=== PATIENT | female | born 1980 | race Caucasian/White ===

== ENCOUNTER 2017-04-13 22:13 | Emergency (ER) | payer BC ==
[~2017-04-13] VITALS: Ht 160 cm; Wt 85.2 kg
[~2017-04-13 22:13] MED LIST: EMPA1TAB PO; FURO-85 PO; LOSA50TA6 PO
[2017-04-13 22:21] VITALS: BP 148/88; PULSE 80; TEMP 36.6; O2SAT 100; Ht 160 cm; Wt 85.2 kg
[2017-04-13] MEDS ORDERED: SITA100T3 PO (22:39)
[2017-04-13] MEDS ORDERED: FRS/40 PO (22:39)
[2017-04-13] MEDS ORDERED: OXYCODONE IR HOME PACK PO ONE (22:45)
[2017-04-13] MEDS ORDERED: OXYC1TAB3 PO (23:14)
[2017-04-13] MEDS ORDERED: KETOROLAC TROMETHAMINE 60 MG/2 ML VIAL IM STA (23:33)
--- NOTE | 2017-04-14 06:28 | EMERGENCY ROOM VISIT NOTE ---
History First contact with patient: 22:33 Chief Complaint: DENTAL PAIN Stated Complaint: TOOTHACHE Nursing Triage Summary: Left sided dental pain since yesterday. Patient states that she has been taking OTC medications with no relief. History of Present Illness The patient is a 36 year old female who presents to the Emergency Room with complaints of left upper central incisor dental pain for the past few days who has an appointment on Saturday with [facility] for treatment. Patient was given antibiotics by the family care doctor. She states the Motrin and Tylenol are not helping. She is requesting some stronger. She does not normally take narcotics. Pain currently 7 out of 10. Nothing makes it better or worse. Patient denies fevers, facial swelling, chest pain, dyspnea, dysphagia, headache, neck stiffness, cough, congestion, cold symptoms. She is tolerate by mouth fluids and food. Review of Systems See HPI for pertinent positives & negatives. A total of 10 systems reviewed and were otherwise negative. Past Medical/Surgical History Medical Problems: (1) Benign hypertension (2) Depression (3) Hysterectomy Social History Smoking Status: Never Smoker Smokeless Tobacco Use: No Drug Use: none Marital Status: Housing Status: lives with family Occupation Status: employed Current/Historical Medications Scheduled Empagliflozin (Jardiance), 100 MG PO DAILY Furosemide (Lasix), 40 MG PO DAILY Sitagliptin Phosphate (Januvia), 100 MG PO DAILY Scheduled PRN Oxycodone Immediate Rel Tab (Roxicodone Ir), 1-2 TAB PO Q4H PRN for Severe Pain Physical Exam Vital Signs Date Time Temp Pulse Resp B/P (MAP) Pulse Ox O2 Delivery O2 Flow Rate FiO2 04/13/17 22:21 36.6 80 19 148/88 100 Room Air Pain Rating (0-10): 10.0 Physical Exam VITALS: Vitals are noted on the nurse's note and reviewed by myself. Vital signs stable. GENERAL: Pleasant female, in no acute distress, nondiaphoretic, well-developed well-nourished. SKIN: The skin was without rashes, erythema, edema, or bruising. There is no tenting of the skin. Capillary reflex less than 2 seconds. HEAD: Normocephalic atraumatic. EARS: External auditory canals clear, tympanic membranes pearly hussein without erythema or effusion bilaterally. EYES: Pupils equal round and reactive to light and accommodation. Conjunctivae without injection, sclerae without icterus. Extraocular movements intact. NOSE: Patent, turbinates without inflammation or discharge. No sinus tenderness. MOUTH: Mucous membranes moist. No Graham angina Pharynx without erythema or exudate. Uvula midline. Airway patent. Tongue does not deviate. Until exam: Extensive dental decay and plaque buildup with no obvious signs of abscess. NECK: Supple without nuchal rigidity. No lymphadenopathy. No thyromegaly. Cervical spine is nontender. No JVD. No meningeal signs HEART: Regular rate and rhythm without murmurs gallops or rubs. LUNGS: Clear to auscultation bilaterally without wheezes, rales or rhonchi. No dullness to percussion. No retractions or accessory muscle use. ABDOMEN: Positive bowel sounds x 4. Normal tympanic percussion. Soft, nontender, without masses or organomegaly. Johnston sign negative. No guarding or rebound tenderness. MUSCULOSKELETAL: No muscle atrophy, erythema, or edema noted. NEURO: Patient was alert and oriented to person place and time. Normal sensation to light and sharp touch. No focal neurological deficits. Medical Decision & Procedures Medications Administered Medications (Trade) Dose Ordered Sig/Nhan Route Start Time Stop Time Status Last Admin Dose Admin Oxycodone HCl (Roxicodone Immediate Rel 5MG Home Pack) 1 homepack UD ONCE PO 04/13/17 22:45 04/13/17 22:46 DC 04/13/17 23:46 1 HOMEPACK Ketorolac Tromethamine (Toradol Inj) 60 mg NOW STAT IM 04/13/17 23:33 04/13/17 23:34 DC 04/13/17 23:47 60 MG ED Course Prior records reviewed and summarized as above. Triage Nursing notes reviewed. The patient's history was concerning for dental pain. Differential diagnosis: Etiologies such as cellulitis, abscess, gingivitis, Graham Zantac, dental caries , as well as others were entertained.. Physical examination: The physical examination was consistent with dental pain from dental decay ER treatment provided: Toradol, home pack of OxyIR On reassessment the patient felt better. Diagnostics interpreted by me: Deferred This appears to be dental pain and dental caries. Patient no signs of palpable abscess. No signs of airway compromise or Graham angina. She is advised to follow-up as scheduled with dentistry for definitive care for her dental problem or here in the ER sooner for facial swelling, fevers, dysphagia, worsening signs or symptoms or as needed.. By the evaluation outlined above emergent etiologies such as abscess, Graham angina, as well as others were deemed relatively unlikely. The pt informed about the findings as listed above. All questions were answered and pleased with the treatment. Return instructions were outlined and the patient was discharged in stable condition. Outpatient prescription management: OxyIR Referral: The patient was referred back to dentistry for follow-up in 2 to 3 days for a recheck of the current condition. Medical Decision As above [place] Drug Monitoring Program Search Results: patient reviewed within database, no issues identified Medication Reconcilliation Current Medication List: was personally reviewed by me Blood Pressure Screening Patient's blood pressure: Elevated blood pressure Blood pressure disposition: Elevated BP felt to be situational Impression Primary Impression: Dental caries Additional Impression: Tooth pain with chewing Departure Information Dispostion Home / Self-Care Condition GOOD Prescriptions Oxycodone Immediate Rel Tab (ROXICODONE IR) 5 Mg Tab 1-2 TAB PO Q4H Y for Severe Pain, #10 TAB Prov: Sally Pablo ., IVELISSE 04/13/17 Referrals No Doctor, Assigned (PCP) Forms HOME CARE DOCUMENTATION FORM, IMPORTANT VISIT INFORMATION Patient Instructions Visit Dental, [facility], ED Tooth Pain Additional Instructions Continue your Amoxicillin 500mg: Take one pill 3 times daily for 10 days for your infection. All antibiotics can cause diarrhea. If this occurs and you feel worse or it does not resolve in 1-2 days follow up with your doctor or return to the Emergency Department as this could be signs of serious underlying problems. Any medication can cause an allergic reaction, stop the pills immediately and return to the ER for rash, hives, breathing difficulties, or swelling. Oxycodone (OxyIR) 5mg: Take 1-2 pills every four hours for breakthrough pain. Avoid alcohol, operating machinery or dangerous equipment, working on ladders or roofs, DRIVING, or situations where being under the influence may be dangerous. It is recommended to use an [id number] stool softener such as Colace, 100mg twice daily while taking this medication to avoid constipation. Ibuprofen(Motrin, Advil) may be used for fever or pain. Use 600mg every six hours as needed. Take with food. Avoid using more than 2400mg in a 24 hour period. Do not use 2400mg per day for more than three consecutive days without physician direction. Prolonged inappropriate use can lead to stomach upset or ulcers. This medication can be taken if you need to drive, work, or perform activities which may be dangerous when taking narcotic pain medication. (AND/OR) Acetaminophen(Tylenol) may be used for fever or pain. Use 1000mg every six hours as needed. Avoid using more than 3000mg in a 24 hour period. This medication can be taken if you need to drive, work, or perform activities which may be dangerous when taking narcotic pain medication. [place] teeth twice a day, floss daily and do warm saltwater gargles 3 times a day. See a dentist as soon as possible for definitive care for your dental problem. Return to ER sooner for facial swelling, fever, redness, worsening signs or symptoms or as needed. Problem Qualifiers
== END 2017-04-13 23:50 | disposition home or self-care (01) ==
LOC: C.EDB 22:14 → C.EDC 23:50
DX: K02.9 Dental caries, unspecified (principal); K08.89 Other specified disorders of teeth and supporting structures; I10 Essential (primary) hypertension; F32.9 Major depressive disorder, single episode, unspecified